=== PATIENT | female | born 1985 | race African-American/Black ===

== ENCOUNTER 2017-03-24 10:53 | Emergency (ER) | payer OTHER ==
[~2017-03-24] VITALS: Ht 162.6 cm; Wt 52.2 kg
[2017-03-24] MEDS ORDERED: ONDANSETRON 4 MG TAB.RAPDIS ONE (12:57)
[2017-03-24] MEDS ORDERED: MORPHINE SULFATE INJ 4 MG/ML DISP.SYRIN ONE (12:57)
[2017-03-24] MEDS: MORPHINE SULFATE INJ 2 MG/ML DISP.SYRIN IM ONE (13:05)
[2017-03-24] MEDS: ONDANSETRON 4 MG TAB.RAPDIS SL ONE (13:05)
[2017-03-24] MEDS ORDERED: CT SWABBABLE VALVE TRANS SET 1 EA INFUS.SET MC ONE (13:11)
[2017-03-24] MEDS ORDERED: IV NS 0.9% 250 ML IV ONE (13:11)
[2017-03-24] MEDS ORDERED: IOHEXOL-300 100 ML VIAL IV ONE (13:11)
[2017-03-24 14:28] VITALS: BP 126/81
== END 2017-03-24 14:28 | disposition home or self-care (01) ==
LOC: ER 10:58
DX: S16.1XXA Strain of muscle, fascia and tendon at neck level, initial encounter (principal); E10.9 Type 1 diabetes mellitus without complications; Z87.898 Personal history of other specified conditions; Z91.018 Allergy to other foods; X58.XXXA Exposure to other specified factors, initial encounter; Y93.89 Activity, other specified; Y92.89 Other specified places as the place of occurrence of the external cause; Y99.9 Unspecified external cause status
CPT/HCPCS: 70491-TC; A4606; J2270; J7050; Q0162; Q9967; Z7610